=== PATIENT | female | born 1965 | race Caucasian/White ===

== ENCOUNTER → 2018-09-30 10:28 | Outpatient (CLI) | payer OTHER, SELFPAY ==
--- NOTE | 2018-09-30 10:34 | BI_ITS ---
MAMMOGRAPHY - BILATERAL SCREENING REASON FOR EXAM: Female, 53 years old. Routine annual screening examination. PERTINENT HISTORY: Non-contributory. TECHNIQUE: Digital bilateral breast silvia (3D mammographic acquisition) in the CC and MLO projections. 2-D mediolateral oblique (MLO) and craniocaudad (CC) views of both breasts were obtained. CAD: Full Field Digital Mammography with Computer Added Detection was performed. COMPARISON: None. Baseline examination. FINDINGS: Breast Composition: The breasts are heterogeneously dense, which may obscure small masses. There are no dominant masses or suspicious calcifications. No other significant abnormalities are identified. BI/SCREEN MAMM (CAD) W/SILVIA BILAT IMPRESSION: Negative screening mammogram. Yearly followup mammogram recommended. (A) ASSESSMENT CATEGORY: BIRADS Category 1: Negative. A letter regarding these results will be sent to the patient by the facility within 30 days. Approximately 10% of breast cancers are not detected by mammography. A normal mammogram should not delay biopsy of a clinically suspicious abnormality. [id number] Electronically Signed: Shawn Zheng, at 13:00 EDT , Service support ,
== END ==
PROVIDERS: Family Provider Internal Medicine; PCP Internal Medicine; Referring Provider Internal Medicine; Visit Provider Internal Medicine
DX: Z12.31 Encounter for screening mammogram for malignant neoplasm of breast (principal)
CPT/HCPCS: 77063; 77067

== ENCOUNTER 2023-09-04 10:26 | Emergency (ER) | payer OTHER, SELFPAY ==
[2023-09-04 10:27] VITALS: BP 154/74; PULSE 74; RESP 16; TEMP 36.4; O2SAT 97; BMI 32.3
--- NOTE | 2023-09-04 10:29 | RAD_ITS ---
HISTORY: pain fall. TECHNIQUE: XR Hip Unilateral with Pelvis when performed; 2-3 Views. COMPARISON: None. FINDINGS: OSSEOUS STRUCTURES: No acute displaced fracture identified. Note that overlapping bowel shadows may obscure osseous detail. Mineralization unremarkable. JOINT SPACES: No dislocation. Joint spaces maintained. RAD/HIP, UNI W/ Pelvis 2-3 Views IMPRESSION: No acute displaced fracture or dislocation identified. Electronically Signed: Lisa Frazier MD at 10:53 EDT ,
--- NOTE | 2023-09-04 10:30 | RAD_ITS ---
HISTORY: pain fall. TECHNIQUE: XR Foot Min 3 Views. COMPARISON: None. FINDINGS: BONES : Nondisplaced fracture of the third metatarsal diaphysis distally. Possible nondisplaced fracture at the base of the second metatarsal. Comminuted fracture of the proximal phalanx in the first toe with intra-articular extension at the head and base. No significant displacement. JOINTS: No dislocation. Degenerative change of the first metatarsophalangeal joint. SOFT TISSUES: Mild soft tissue swelling. RAD/Foot min 3 Views IMPRESSION: Nondisplaced fracture of third metatarsal. Possible nondisplaced fracture of the second metatarsal base. Soft tissue swelling of the left first toe with nondisplaced intra-articular fractures of the proximal phalanx. Electronically Signed: Lisa Frazier MD at 10:56 EDT ,
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
[2023-09-04] MEDS: HYDROcodone Bitartrate/Apap 5/325 Tablet PO (12:33)
[2023-09-04 12:38] VITALS: BP 130/76; PULSE 82; RESP 16; TEMP 36.8; O2SAT 98
== END 2023-09-04 12:43 | disposition home or self-care (01) ==
PROVIDERS: Emergency Provider Student in an Organized Health Care Education/Training Program; PCP Internal Medicine; Visit Provider Student in an Organized Health Care Education/Training Program
DX: S92.335A Nondisplaced fracture of third metatarsal bone, left foot, initial encounter for closed fracture (principal); S70.02XA Contusion of left hip, initial encounter; S92.325A Nondisplaced fracture of second metatarsal bone, left foot, initial encounter for closed fracture; V28.19XA Other motorcycle passenger injured in noncollision transport accident in nontraffic accident, initial encounter; S92.412A Displaced fracture of proximal phalanx of left great toe, initial encounter for closed fracture; Y92.481 Parking lot as the place of occurrence of the external cause
CPT/HCPCS: 73502; 73630; 99283